=== PATIENT | female | born 1955 | race Caucasian/White ===

== ENCOUNTER 2022-10-17 07:29 | Emergency (ER) | payer MEDICARE ==
[~2022-10-17] VITALS: Ht 167.6 cm; Wt 81.6 kg
[2022-10-17] MEDS ORDERED: BENZONATATE 100 MG CAPSULE PO PRN (08:30)
[2022-10-17] MEDS ORDERED: ACETAMINOPHEN 325 MG TABLET PO ONE (08:30)
[2022-10-17] MEDS ORDERED: BENZONATATE 100 MG CAPSULE PO ONE (08:30)
[2022-10-17] MEDS ORDERED: ACETAMINOPHEN 325 MG TABLET ONE (08:32)
--- NOTE | 2022-10-17 08:39 | NUR ---
RAPID COVID, RAPID FLU, AND RSV SWABS OBTAINED AND SENT TO LAB
--- NOTE | 2022-10-17 08:57 | NUR ---
HVAC MANAGER AT BEDSIDE FOR XRAY
[2022-10-17] MEDS ORDERED: BENZ-13 PO (09:35)
--- NOTE | 2022-10-17 09:53 | NUR ---
Patient discharged to home in stable condition. Written and verbal after care instructions given. Patient verbalizes understanding of instruction.
[2022-10-17 09:54] VITALS: BP 125/77
== END 2022-10-17 09:54 | disposition home or self-care (01) ==
LOC: ER 07:35
DX: J06.9 Acute upper respiratory infection, unspecified (principal); B97.89 Other viral agents as the cause of diseases classified elsewhere; Z20.822 Contact with and (suspected) exposure to COVID-19; E11.9 Type 2 diabetes mellitus without complications
CPT/HCPCS: 71045-TC; C9803

== ENCOUNTER 2024-09-06 07:17 | Emergency (ER) | payer MEDICARE, OTHER ==
[~2024-09-06] VITALS: Ht 167.6 cm; Wt 88.5 kg
[~2024-09-06 07:17] MED LIST: BENZ-13 PO
[2024-09-06 08:30] LABS: BASOPHILS % (AUTO) 0.6 % (0.0-2.0); EOSINOPHILS # (AUTO) 0.3 K/uL (0.0-0.7); EOSINOPHILS % (AUTO) 4.4 % (0.0-6.0); HEMATOCRIT 43 % (33-45); HEMOGLOBIN 14.1 g/dL (11.5-14.8); LYMPHOCYTES # (AUTO) 2.6 K/uL (0.8-4.8); LYMPHOCYTES % (AUTO) 35.9 % (20.0-44.0); MEAN CORPUSCULAR HEMOGLOBIN 31 PG (26.0-33.0); MEAN CORPUSCULAR HGB CONC 33 g/dl (31.0-36.0); MEAN CORPUSCULAR VOLUME 93 fL (82-100); MONOCYTES # (AUTO) 0.5 K/uL (0.1-1.30); MONOCYTES % (AUTO) 6.8 % (2.0-12.0); NEUTROPHILS # (AUTO) 3.7 K/uL (1.8-8.9); NEUTROPHILS % (AUTO) 52.3 % (43.0-81.0); PLATELET COUNT (AUTO) 299 K/uL (150-450); RED BLOOD CELL COUNT(AUTO) 4.65 MIL/uL (4.0-5.2); RED CELL DISTRIBUTION WIDTH 12.8 % (11.5-15.0); WHITE BLOOD COUNT (AUTO) 7.1 K/uL (4.3-11.0)
[2024-09-06 08:33] LABS: APPEARANCE,URINE CLEAR (CLEAR); BILIRUBIN,URINE NEGATIVE (NEGATIVE); BLOOD, URINE NEGATIVE Ery/uL (NEGATIVE); COLOR,URINE YELLOW (YELLOW); KETONES,URINE NEGATIVE (NEGATIVE); LEUKOCYTE ESTERASE ,URINE NEGATIVE (NEGATIVE); NITRITE, URINE NEGATIVE (NEGATIVE); PH,URINE 5.5 (5.0-8.0); PROTEIN,URINE NEGATIVE (NEGATIVE); UGLUCOSE 1+ mg/dL (NEGATIVE); UROBILINOGEN,URINE 0.2 EU/dL (0.2)
[2024-09-06 08:38] LABS: CALCIUM, SERUM 10.3 mg/dL (8.5-10.1); CREATININE 0.8 mg/dL (0.6-1.3); POTASSIUM 4.2 mmol/L (3.5-5.1)
[2024-09-06 08:41] LABS: ADD URINE CULTURE NO; BACTERIA,URINE Rare /HPF (None Seen); RBC,URINE 0-2 /HPF (0-2); SQUAMOUS EPITHELIAL CELL,UR Few /HPF (None Seen); WBC,URINE 0-2 /HPF (0-3)
[2024-09-06] MEDS ORDERED: KETOROLAC TROMETHAMINE 15 MG/ML VIAL ONE (08:45)
[2024-09-06] MEDS ORDERED: ONDANSETRON HCL/PF 4 MG/2 ML VIAL ONE (08:45)
[2024-09-06 08:46] LABS: ALBUMIN 4.1 g/dL (3.4-5.0); BILIRUBIN,DIRECT 0.1 mg/dL (0.0-0.2); BILIRUBIN,TOTAL 0.5 mg/dL (0.2-1.0); TOTAL PROTEIN, SERUM 8.6 g/dL (6.4-8.2)
[2024-09-06] MEDS: IV NS 0.9% 1,000 ML BAG IV ONE (08:57)
[2024-09-06] MEDS: ONDANSETRON HCL/PF 4 MG/2 ML VIAL IVP ONE (08:58)
[2024-09-06] MEDS: KETOROLAC TROMETHAMINE 15 MG/ML VIAL IV ONE (09:00)
[2024-09-06] MEDS ORDERED: METH-649 PO (10:35)
[2024-09-06] MEDS ORDERED: LIDO30AD10 TP (10:35)
[2024-09-06 11:08] VITALS: BP 150/68; TEMP 97.6; O2SAT 98
== END 2024-09-06 11:10 | disposition home or self-care (01) ==
LOC: ER 07:41
DX: R10.32 Left lower quadrant pain (principal); R11.0 Nausea; M54.50 Low back pain, unspecified; E11.9 Type 2 diabetes mellitus without complications
CPT/HCPCS: 99285; 74176; 96374; 96361; 96375; 85025; 80048; 87086; 83690; 80076; 81001; 36415; J2405; J7030; J1885